=== PATIENT | female | born 1975 | race Caucasian/White ===

== ENCOUNTER → 2023-09-27 | Outpatient (CLI) | payer BC, SELFPAY ==
[2023-09-27 09:36] LABS: Absolute Neutrophil Count 3.9 X10^3/uL (2.0-7.7); Basophil# 0.04 X10^3/uL; Basophil% 0.6 % (0-1); Eosinophil# 0.03 X10^3/uL; Eosinophils% 0.5 % (0-5); Hematocrit 43.9 % (37-47); Lymphocyte % 32.1 % (19-41); Mean Corp Hgb Conc 31.9 g/dL (32-36); Mean Corpuscular Hgb 29.8 pg (27.0-32.0); Mean Corpuscular Volume 93.4 fL (81-99); Mean Platelet Vol. 10.8 fl (6.2-12.0); Monocyte% 7.6 % (0-10); NRBC Flagged by Analyzer 0 % (0-5); Neutrophil # 3.85 X10^3/uL (2.7-7.7); Neutrophil % 58.9 % (47-70); Platelet Count 288 K/mm3 (150-450); RBC Distribution Width CV 12.5 % (11.6-14.6); RBC Distribution Width SD 42.8 fl (35.1-43.9); White Blood Count 6.5 K/mm3 (4.4-11.0)
[2023-09-27 09:50] LABS: International Normalized Ratio 1.5; Prothrombin Time (Protime)PT. 18.1 SECONDS (11.7-14.9)
[2023-09-27 09:52] LABS: Erythrocyte Sedimentation Rate 12 mm/hr (0-30)
[2023-09-27 10:16] LABS: ALB/GLOB Ratio 0.9 RATIO (0.9-2.4); AST(SGOT) 38 U/L (15-37); Alanine Aminotransfer ALT/SGPT 57 U/L (13-56); Albumin, Serum 3.7 g/dL (3.2-5.0); Alkaline Phosphatase 67 U/L (45-117); Anion Gap 3 (5-15); BUN 16 mg/dL (7-18); BUN/Creat Ratio 21.4 RATIO (10-20); CRP 3.81 mg/L (0.0-3.0); Chloride 107 mmol/L (98-107); Creatinine, Serum 0.75 mg/dL (0.55-1.02); EST Glomerular Filtration Rate 88 mL/min (>60); Est Glom Filt Rate - Afr Amer 107 mL/min (>60); Globulin 4.1 g/dL (2.2-4.2); Glucose 87 mg/dL (74-106); LDH 168 U/L (84-246); Potassium 4.1 mmol/L (3.5-5.1); Protein, Total 7.8 g/dL (6.4-8.2); Sodium Level 135 mmol/L (136-145); Thyroid Stim Hormone (TSH) 2.01 uIU/mL (0.358-3.74)
[2023-10-02 12:09] LABS: Anti-Centromere B Ab <0.2 AI (0.0-0.9); Anti-Chromatin <0.2 AI (0.0-0.9); Anti-Jo <0.2 AI (0.0-0.9); Anti-Mitochondrial AB <20.0 Units (0.0-20.0); Anti-Scleroderma-70 AB <0.2 AI (0.0-0.9); Anti-dsDNA Ab 1 IU/mL (0-9); Beef <0.10 kU/L (Class 0); Chocolate <0.10 kU/L (Class 0); Codfish <0.10 kU/L (Class 0); Corn <0.10 kU/L (Class 0); Egg, Whole <0.10 kU/L (Class 0); Milk (Cow) <0.10 kU/L (Class 0); Mussels <0.10 kU/L (Class 0); Peanut <0.10 kU/L (Class 0); Pork <0.10 kU/L (Class 0); RNP Ab <0.2 AI (0.0-0.9); SJOGREN'S Anti-SS-A test 0.2 AI (0.0-0.9); SJOGREN'S Anti-SS-B test < 0.2 AI (0.0-0.9); Salmon <0.10 kU/L (Class 0); Shrimp <0.10 kU/L (Class 0); Smith Ab <0.2 AI (0.0-0.9); Soybean <0.10 kU/L (Class 0); Tuna <0.10 kU/L (Class 0); Wheat <0.10 kU/L (Class 0)
[2023-10-03 06:09] LABS: ACCA 13 units (0-90); AMCA 30 units (0-100); Alpha-1-Globulins 0.2 g/dL (0.0-0.4); Alpha-2-Globulins 0.7 g/dL (0.4-1.0); Angiotensin Convert Enzyme 23 U/L (14-82); Anti-Smooth Muscle ABS 6 Units (0-19); Ceruloplasmin 23.7 mg/dL (19.0-39.0); Copper, Serum or Plasma 122 ug/dL (80-158); Cytoplasmic Ab (C-ANCA) <1:20 titer (Neg:<1:20); Dilute Russell Viper Venom 65.9 sec (0.0-47.0); Endomysial Antibody IgA Negative (Negative); Gamma Globulin 1.5 g/dL (0.4-1.8); HEPATITIS B SURFACE AG Negative (Negative); Hep C Antibodies Non Reactive (Non Reactive); Hepatitis A IgM Antibody Negative (Negative); Hepatitis B Core AB IgM Negative (Negative); IgG, Quant 1505 mg/dL (586-1602); Immunoglobulin A 125 mg/dL (87-352); Immunoglobulin E 27 IU/mL (6-495); Immunoglobulin G, Subclass 1 1116 mg/dL (248-810); Immunoglobulin G, Subclass 2 390 mg/dL (130-555); Immunoglobulin G, Subclass 3 30 mg/dL (15-102); Immunoglobulin G, Subclass 4 24 mg/dL (2-96); Immunoglobulin M 118 mg/dL (26-217); Interpretation Comment: (.); PROEL- TOTAL PROTEIN 7.4 g/dL (6.0-8.5); PTT-LA 33.5 sec (0.0-43.5); Perinuclear Ab (P-ANCA) <1:20 titer (Neg:<1:20); Thrombin Time 17.1 sec (0.0-23.0); dPT Confirm Ratio 0.92 Ratio (0.00-1.34); gASCA 0 units (0-50); t-Transglutaminase IgA <2 U/mL (0-3)
[2023-11-20 14:34] LABS: ALCA 16 units (0-60)
== END | disposition home or self-care (01) ==
LOC: LAB 09:01
PROVIDERS: PCP Nurse Practitioner Adult Health; Referring Provider Internal Medicine Gastroenterology; Visit Provider Internal Medicine Gastroenterology
DX: R19.7 Diarrhea, unspecified (principal)
CPT/HCPCS: 36415; 80053; 80074; 82164; 82390; 82525; 82784; 82785; 82787; 83516; 83615; 84165; 84443; 85025; 85610; 85652; 86003; 86005; 86036; 86140; 86225; 86235; 86255; 86256; 86334; 86671

== ENCOUNTER 2023-10-16 06:03 | Day surgery (SDC) | payer BC, SELFPAY ==
[2023-10-16] VITALS (7 sets, daily range): BP systolic 88–144; BP diastolic 57–122; PULSE 57–74; RESP 16; TEMP 36.5–36.9; O2SAT 98–100; BMI 26.5
--- OUTSIDE RECORDS SUMMARY | 2023-10-16 06:10 | XMS RPT_ITS | CCD ---
Author Name Unknown Address [facility] [place] [address] Organization [facility] Care Team Providers Care Program Evaluation Consultant Name Role Phone TORRES MARTE, SUNDAY Primary Care Physician NISA EVERETT, ANYI Meyer Attending Unavailable FFEMARTIN FELTON-OCCUPATIONAL THERAPY DIRECTOR, [facility] Primary Care Unavai lable TORRES FELTON-RAISA, [facility] Primary Care Leesa PAULA MD, ANYI Meyer Attending Unavailable SEFFENS HAND COPER-OCCUPATIONAL THERAPY DIRECTOR, SUNDAY Attending Unavai lable TORRES JIMENEZN-OCCUPATIONAL THERAPY DIRECTOR, SUNDAY Primary Care Unavai lable TORRES FELTON-OCCUPATIONAL THERAPY DIRECTOR, SUNDAY Primary Care Unavai lable FFEMARTIN FELTON-RAISA, SUNDAY Attending Unavai lable TORRES FELTON-OCCUPATIONAL THERAPY DIRECTOR, SUNDAY Primary Care Leesa PAULA MD, ANYI Meyer Attending Unavailable SEFFENS HAND COPER-OCCUPATIONAL THERAPY DIRECTOR, SUNDAY Primary Care Unavai lable FFEMARTIN HAND COPER-OCCUPATIONAL THERAPY DIRECTOR, SUNDAY Attending Unavai lable FFEMARTIN HAND COPER-OCCUPATIONAL THERAPY DIRECTOR, SUNDAY Primary Care Unavai lable SEFFENS HAND COPER-OCCUPATIONAL THERAPY DIRECTOR, SUNDAY Attending Unavai lable SEFFEMARTIN JIMENEZN-OCCUPATIONAL THERAPY DIRECTOR, SUNDAY Primary Care Unavai lable SEFFENS HAND COPER-OCCUPATIONAL THERAPY DIRECTOR, SUNDAY Attending Cammyvareese labniels Allergies Allergy Classification Reported Allergen(s) Allergy Type Date of Onset Reaction(s) Facility (13 sources) Penicillin; Translations: [penicillin] Drug Allergy [facility] (13 sources) Povidone-Iodine; Translations: [povidone iodine topical] Drug Allergy [facility] Medications Current Medications Medication Drug Class(es) Dates Sig (Normalized) Sig (Original) [id number] 200 actuat albuterol 0.09 mg/actuat metered dose inhaler (1 source) beta2-Adrenergic Agonist Start: 12-15-2022 End: 12-22-2022 take 1-2 puff(s) by inhalation every six hours as needed for wheezing ProAir HFA MDI (90 mcg/inh) inhalation aerosol 1-2 puffs, Inhalation, q6h, PRN PRN as needed for wheezing, # 18 gram(s), 0 Refill(s), Pharmacy: [facility] #[id number], 160, cm, 12/14/22 15:10:00 EDT, Height Start Date: 12/15/22 Stop Date: 12/22/22 Status: Ordered 12 hr guaiFENesin 600 mg extended release oral tablet (2 sources) Start: 08-15-2022 End: 08-22-2022 Mucinex 600 mg oral tablet, extended release Dose : 600 mg = 1 tab(s), Oral, q12h, # 14 tab(s), 0 Refill(s) Start Date: 08/15/22 Stop Date: 08/22/22 Status: Ordered Lopressor 25mg--USE metoprolol tartrate 25 mg oral tablet (11 sources) Start: 05-07-2022 End: 05-02-2023 Lopressor 25mg--USE metoprolol tartrate 25 mg oral tablet Dose : 12.5 mg = 0.5 tab(s), Oral, BID, # 90 tab(s), 3 Refill(s), Pharmacy: [facility] #[id number], 160, cm, 05/07/22 8:35:00 EDT, Height, kg, 05/07/22 8:16:00 EDT, Dosing Weight Start Date: 05/07/22 Stop Date: 05/02/23 Status: Ordered Completed/Discontinued Medications Medication Drug Class(es) Dates Sig (Normalized) Sig (Original) albuterol MDI (90 mcg/inh) CFC free inhalation aerosol (2 sources) Start: 12-18-2022 End: 12-25-2022 take 2 puff(s) by inhalation every six hours as needed for wheezing albuterol MDI (90 mcg/inh) CFC free inhalation aerosol 2 puff(s), Inhalation, q6hr, PRN PRN as needed for wheezing, # 18 gram(s), 0 Refill(s), Pharmacy: [facility] #[id number], 160, cm, 12/14/22 15:10:00 EDT, Height Start Date: 12/18/22 Stop Date: 12/25/22 Status: Ordered Problems Active Problems Problem Classification Problem Date Documented Date Episodic/Chronic Anxiety disorders (5 sources) Anxiety 11-05-2022 Chronic Cardiac dysrhythmias (12 sources) Palpitations 11-04-2021 Episodic Disorders of lipid metabolism (13 sources) Hypercholesterolemia 05-09-2020 Chronic Endometriosis (13 sources) Endometriosis (clinical) 05-09-2020 Chronic Genitourinary symptoms and ill-defined conditions (20 sources) Blood in urine; Translations: [Urinary symptoms ] 02-22-2022 Episodic Mood disorders (5 sources) Recurrent major depressive episodes, moderate 09-11-2022 Chronic Nonspecific chest pain (1 source) Chest pain; Translations: [Other chest pain] Episodic Nutritional deficiencies (5 sources) Vitamin D deficiency 11-05-2022 Chronic Other aftercare (13 sources) Long-term current use of anticoagulant 07-06-2021 Episodic Other gastrointestinal disorders (8 sources) Diarrhea 05-07-2022 Episodic Other lower respiratory disease (7 sources) Cough 08-15-2022 Episodic Other nutritional; endocrine; and metabolic disorders (5 sources) Obesity 11-05-2022 Chronic Phlebitis; thrombophlebitis and thromboembolism (20 sources) Deep venous thrombosis of lower extremity; Translations: [H/O: Deep vein thrombosis] 10-05-2020 Episodic Pulmonary heart disease (20 sources) H/O: pulmonary embolus; Translations: [Pulmonary embolism] 07-06-2021 Episodic Unclassified (8 sources) A+, Immune,( Confirmed ) Onset: 02-22-20 06 02-22-2006 Unclassified (8 sources) L2( Confirmed ) Onset: 02-22-20 06 02-22-2006 Unclassified (8 sources) Girl @ 1310, Bottle feeding.( Confirmed ) Onset: 02-22-2002-22-2006 Unclassified (5 sources) A+, Immune, Onset: 02-22-2002-22-2006 Unclassified (5 sources) Cancer cervix screening status 11-05-2022 Unclassified (5 sources) L2 Onset: 02-22-20 06 02-22-2006 Unclassified (5 sources) Girl @ 1310, Bottle feeding. Onset: 02-22-2002-22-2006 Unclassified (10 sources) Patient encounter status 11-05-2022 Urinary tract infections (10 sources) Urinary tract infectious disease 02-22-2022 Episodic Past or Other Problems Problem Classification Problem Date Documented Da te Episodic/Chronic Other screening for suspected conditions (not mental disorders or infectious disease) (2 sources) Encounter for screening for malignant neoplasm of cervix; Translations: [Encounter for screening for malignant neoplasm of cervix] Onset: 11-05-2022 Episodic Results Test Name Value Interpretation Reference Range Facil ity Encounters Encounter Date Encounter Type Care Provider Facility Start: 08-22-2023 End: 08-23-2023 ambulatory SUNDAY SEFFENS HAND COPER-OCCUPATIONAL THERAPY DIRECTOR Facility:B Start: 01-15-2023 End: 01-16-2023 ambulatory SUNDAY SEFFENS HAND COPER-OCCUPATIONAL THERAPY DIRECTOR Facility:A Start: 12-25-2022 End: 12-26-2022 ambulatory SUNDAY SEFFENS HAND COPER-OCCUPATIONAL THERAPY DIRECTOR Facility:B Start: 12-25-2022 End: 12-25-2022 Patient encounter procedure SUNDAY SEFFENS HAND COPER-OCCUPATIONAL THERAPY DIRECTOR [facility] Start: 12-24-2022 End: 12-25-2022 ambulatory SUNDAY SEFFENS HAND COPER-OCCUPATIONAL THERAPY DIRECTOR Facility:B Start: 12-24-2022 End: 12-24-2022 Patient encounter procedure SUNDAY SEFFENS HAND COPER-OCCUPATIONAL THERAPY DIRECTOR [facility] Start: 12-17-2022 End: 12-18-2022 ambulatory SUNDAY SEFFENS HAND COPER-OCCUPATIONAL THERAPY DIRECTOR Facility:B Start: 12-17-2022 End: 12-17-2022 Patient encounter procedure SUNDAY SEFFENS HAND COPER-OCCUPATIONAL THERAPY DIRECTOR [facility] Start: 12-13-2022 End: 12-14-2022 ambulatory SUNDAY TORRES HAND COPER-OCCUPATIONAL THERAPY DIRECTOR Facility:B Start: 12-13-2022 End: 12-13-2022 Patient encounter procedure ANYI PAULA MD [facility] Start: 11-05-2022 End: 11-10-2022 ambulatory SUNDAY SEFFENS HAND COPER-OCCUPATIONAL THERAPY DIRECTOR Facility:B Start: 11-05-2022 End: 11-10-2022 Encounter for general adult medical examination without abnormal findings SUNDAY SENIKINS HAND COPER-OCCUPATIONAL THERAPY DIRECTOR Facility:B Start: 11-05-2022 End: 11-09-2022 Outreach Lab SUNDAY MACDONALD HAND COPER-OCCUPATIONAL THERAPY DIRECTOR [facility] Start: 10-09-2022 End: 10-10-2022 ambulatory ANYI PAULA MD Facility:A Start: 08-18-2022 End: 08-18-2022 Patient encounter procedure SUNDAY MACDONALD HAND COPER-OCCUPATIONAL THERAPY DIRECTOR [facility] Start: 08-15-2022 End: 08-19-2022 Outreach Lab NANETTE BOWDEN HAND COPER-OCCUPATIONAL THERAPY DIRECTOR [facility] Start: 05-24-2022 End: 05-24-2022 Patient encounter procedure SUNDAY MACDONALD HAND COPER-OCCUPATIONAL THERAPY DIRECTOR [facility] Start: 05-03-2022 End: 05-03-2022 Patient encounter procedure MAYNOR BARRETT MD [facility] Start: 02-22-2022 End: 02-26-2022 Outreach Lab NAVNEET DU DO [facility] Start: 12-05-2021 End: 12-05-2021 Patient encounter procedure SUNDAY MACDONALD HAND COPER-OCCUPATIONAL THERAPY DIRECTOR [facility] Start: 11-06-2021 End: 11-06-2021 Patient encounter procedure MAYNOR BARRETT MD [facility] Start: 10-26-2021 End: 10-26-2021 Patient encounter procedure FRANCIS ROJAS HAND COPER-OCCUPATIONAL THERAPY DIRECTOR [facility] Procedures Date Procedure Procedure Detail Performing Clinician Start: 05-26-2020 Laparoscopic cholecystectomy FRANCIS ROJAS HAND COPER-OCCUPATIONAL THERAPY DIRECTOR Immunizations Immunization Date Immunization Notes Care Provider Fa [facility] 07-08-2019 influenza virus vaccine, unspecified formulation FRANCIS ROJAS HAND COPER-OCCUPATIONAL THERAPY DIRECTOR [facility] 05-19-2014 influenza virus vaccine, unspecified formulation FRANCIS ROJAS HAND COPER-OCCUPATIONAL THERAPY DIRECTOR [facility] Payers Date Payer Category Payer Unknown [id number] 1975 Unknown [id number] 2.16.8 [id number] 1975 Unknown [id number] 2.16.8 [id number] 1976 Unknown [id number] 2.16.8 [id number] 1976 Unknown [id number] 2.16.8 [id number] 1976 Unknown [id number] 2.16.8 [id number] 1976 Unknown [id number] 2.16.8 [id number] 1975 Unknown [id number] 2.16.8 [id number] 1975 Unknown [id number] 2.16.8 [id number] Social History Date Type Detail Facility Start: 05-09-2020 Never smoked t obacco (finding) [facility] Sex Assigned At Female [facility] Clinical Notes 08-15-2022 to 12-24-2022 LaboratoryRadiologyLaboratoryRadiologyLaboratoryRadiologyLaboratoryRadiologyLabo ratoryRadiologyLaboratoryRadiologyLaboratoryRadiologyLaboratoryRadiologyLaborato ryRadiologyLaboratoryRadiologyLaboratory Note Date & Type Note Facility 12-24-2022 Note ORIGINAL EXAMINATION: CTA OF THE CHEST WITH 3D AND MIP RECONSTRUCTIONS 12/24/2022 9:47 am TECHNIQUE: CTA of the chest was performed after the administration of intravenous contrast. Multiplanar reformatted images are provided for review. 3D images are provided for review. Automated exposure control, iterative reconstruction, and/or weight based adjustment of the mA/kV was utilized to reduce the radiation dose to as low as reasonably achievable. COMPARISON: 11/06/2021, earlier HISTORY: ORDERING SYSTEM PROVIDED HISTORY: Reason for Exam: Elevated D-dimer, chest tightness Shortness of breath, elevated D-dimer, history of PE, history of hypertension FINDINGS: Pulmonary Arteries: Adequate main pulmonary artery contrast opacification. Normal caliber main pulmonary artery. No pulmonary embolism to the subsegmental branches given respiratory and contrast streak artifacts. Right middle lobe segmental and subsegmental branches are mildly attenuated from prior embolism when compared to prior 2019 CTA. Mediastinum: No thoracic lymphadenopathy. Normal heart size. No pericardial effusion or leftward bowing of interventricular septum. Normal caliber thoracic aorta with 4 vessel branch arch to include the left vertebral artery. No acute arterial abnormality. Lungs/pleura: Patent tracheobronchial tree. Slight juxtapleural nodular scarring in the right lower lobe posterior segment. No focal consolidation. No pleural effusion or pneumothorax. Upper Abdomen: Limited images of the upper abdomen are unremarkable. Soft Tissues/Bones: No acute or destructive bony abnormality. Mildly degenerative spine. IMPRESSION: No evidence of pulmonary embolism or acute pulmonary abnormality. Interpreted by: Behzad Polanco Preliminary Report By: Behzad Polanco Electronically signed By Behzad Polanco Dictated Date: 12/24/2022 9:49:33 AM Prelim Date: 12/24/2022 9:59:49 AM Sign Date: 12/24/2022 9:59:49 AM Ordering Provider: [facility] 12-24-2022 Note ORIGINAL EXAMINATION: CTA OF THE CHEST WITH 3D AND MIP RECONSTRUCTIONS 12/24/2022 9:47 am TECHNIQUE: CTA of the chest was performed after the administration of intravenous contrast. Multiplanar reformatted images are provided for review. 3D images are provided for review. Automated exposure control, iterative reconstruction, and/or weight based adjustment of the mA/kV was utilized to reduce the radiation dose to as low as reasonably achievable. COMPARISON: 11/06/2021, earlier HISTORY: ORDERING SYSTEM PROVIDED HISTORY: Reason for Exam: Elevated D-dimer, chest tightness Shortness of breath, elevated D-dimer, history of PE, history of hypertension FINDINGS: Pulmonary Arteries: Adequate main pulmonary artery contrast opacification. Normal caliber main pulmonary artery. No pulmonary embolism to the subsegmental branches given respiratory and contrast streak artifacts. Right middle lobe segmental and subsegmental branches are mildly attenuated from prior embolism when compared to prior 2020 CTA. Mediastinum: No thoracic lymphadenopathy. Normal heart size. No pericardial effusion or leftward bowing of interventricular septum. Normal caliber thoracic aorta with 4 vessel branch arch to include the left vertebral artery. No acute arterial abnormality. Lungs/pleura: Patent tracheobronchial tree. Slight juxtapleural nodular scarring in the right lower lobe posterior segment. No focal consolidation. No pleural effusion or pneumothorax. Upper Abdomen: Limited images of the upper abdomen are unremarkable. Soft Tissues/Bones: No acute or destructive bony abnormality. Mildly degenerative spine. IMPRESSION: No evidence of pulmonary embolism or acute pulmonary abnormality. Interpreted by: Behzad Polanco Preliminary Report By: Behzad Polanco Electronically signed By Behzad Polanco Dictated Date: 12/24/2022 9:49:33 AM Prelim Date: 12/24/2022 9:59:49 AM Sign Date: 12/24/2022 9:59:49 AM Ordering Provider: SUNDAY MACDONALD [facility] 11-09-2022 Note Event Code Result HPV Interp See Interp HPVN HPV Interp Text: High Risk HPV Typing: NEGATIVE HPV types 16, 18, 31, 33, 35, 39, 45, 51, 52, 56, 58, 59, 66 and 68 DNA were undetectable or below the pre-set threshold. The steve High-Risk HPV DNA Test is not intended for use as a screening device for Pap normal women under age 30 and is not intended to substitute for regular Pap screening. The steve High-Risk HPV DNA Test is designed to augment existing methods for the detection of cervical disease and should be used in conjunction with clinical information derived from other diagnostic and screening tests, physical examinations and full medical history in accordance with appropriate patient management procedures. NOTE: A negative result does not preclude the presence of HPV infection because results depend on adequate specimen collection, absence of inhibitors and sufficient DNA to be detected. As of: 11/09/22 13:17 [facility] 11-09-2022 Note Event Code Result HPV Interp See Interp HPVN HPV Interp Text: High Risk HPV Typing: NEGATIVE HPV types 16, 18, 31, 33, 35, 39, 45, 51, 52, 56, 58, 59, 66 and 68 DNA were undetectable or below the pre-set threshold. The steve High-Risk HPV DNA Test is not intended for use as a screening device for Pap normal women under age 30 and is not intended to substitute for regular Pap screening. The steve High-Risk HPV DNA Test is designed to augment existing methods for the detection of cervical disease and should be used in conjunction with clinical information derived from other diagnostic and screening tests, physical examinations and full medical history in accordance with appropriate patient management procedures. NOTE: A negative result does not preclude the presence of HPV infection because results depend on adequate specimen collection, absence of inhibitors and sufficient DNA to be detected. As of: 11/09/22 13:17 [facility] 11-09-2022 Note Event Code Result HPV Interp See Interp HPVN HPV Interp Text: High Risk HPV Typing: NEGATIVE HPV types 16, 18, 31, 33, 35, 39, 45, 51, 52, 56, 58, 59, 66 and 68 DNA were undetectable or below the pre-set threshold. The steve High-Risk HPV DNA Test is not intended for use as a screening device for Pap normal women under age 30 and is not intended to substitute for regular Pap screening. The steve High-Risk HPV DNA Test is designed to augment existing methods for the detection of cervical disease and should be used in conjunction with clinical information derived from other diagnostic and screening tests, physical examinations and full medical history in accordance with appropriate patient management procedures. NOTE: A negative result does not preclude the presence of HPV infection because results depend on adequate specimen collection, absence of inhibitors and sufficient DNA to be detected. As of: 11/09/22 13:17 [facility] 11-09-2022 Note Event Code Result HPV Interp See Interp HPVN HPV Interp Text: High Risk HPV Typing: NEGATIVE HPV types 16, 18, 31, 33, 35, 39, 45, 51, 52, 56, 58, 59, 66 and 68 DNA were undetectable or below the pre-set threshold. The steve High-Risk HPV DNA Test is not intended for use as a screening device for Pap normal women under age 30 and is not intended to substitute for regular Pap screening. The steve High-Risk HPV DNA Test is designed to augment existing methods for the detection of cervical disease and should be used in conjunction with clinical information derived from other diagnostic and screening tests, physical examinations and full medical history in accordance with appropriate patient management procedures. NOTE: A negative result does not preclude the presence of HPV infection because results depend on adequate specimen collection, absence of inhibitors and sufficient DNA to be detected. As of: 11/09/22 13:17 [facility] 11-09-2022 Note Event Code Result HPV Interp See Interp HPVN HPV Interp Text: High Risk HPV Typing: NEGATIVE HPV types 16, 18, 31, 33, 35, 39, 45, 51, 52, 56, 58, 59, 66 and 68 DNA were undetectable or below the pre-set threshold. The steve High-Risk HPV DNA Test is not intended for use as a screening device for Pap normal women under age 30 and is not intended to substitute for regular Pap screening. The steve High-Risk HPV DNA Test is designed to augment existing methods for the detection of cervical disease and should be used in conjunction with clinical information derived from other diagnostic and screening tests, physical examinations and full medical history in accordance with appropriate patient management procedures. NOTE: A negative result does not preclude the presence of HPV infection because results depend on adequate specimen collection, absence of inhibitors and sufficient DNA to be detected. As of: 11/09/22 13:17 [facility] 11-09-2022 Note Event Code Result HPV Interp See Interp HPVN HPV Interp Text: High Risk HPV Typing: NEGATIVE HPV types 16, 18, 31, 33, 35, 39, 45, 51, 52, 56, 58, 59, 66 and 68 DNA were undetectable or below the pre-set threshold. The steve High-Risk HPV DNA Test is not intended for use as a screening device for Pap normal women under age 30 and is not intended to substitute for regular Pap screening. The steve High-Risk HPV DNA Test is designed to augment existing methods for the detection of cervical disease and should be used in conjunction with clinical information derived from other diagnostic and screening tests, physical examinations and full medical history in accordance with appropriate patient management procedures. NOTE: A negative result does not preclude the presence of HPV infection because results depend on adequate specimen collection, absence of inhibitors and sufficient DNA to be detected. As of: 11/09/22 13:17 [facility] 11-09-2022 Note Event Code Result HPV Interp See Interp HPVN HPV Interp Text: High Risk HPV Typing: NEGATIVE HPV types 16, 18, 31, 33, 35, 39, 45, 51, 52, 56, 58, 59, 66 and 68 DNA were undetectable or below the pre-set threshold. The steve High-Risk HPV DNA Test is not intended for use as a screening device for Pap normal women under age 30 and is not intended to substitute for regular Pap screening. The steve High-Risk HPV DNA Test is designed to augment existing methods for the detection of cervical disease and should be used in conjunction with clinical information derived from other diagnostic and screening tests, physical examinations and full medical history in accordance with appropriate patient management procedures. NOTE: A negative result does not preclude the presence of HPV infection because results depend on adequate specimen collection, absence of inhibitors and sufficient DNA to be detected. As of: 11/09/22 13:17 EDT [facility] 11-09-2022 Note Event Code Result HPV Interp See Interp HPVN HPV Interp Text: High Risk HPV Typing: NEGATIVE HPV types 16, 18, 31, 33, 35, 39, 45, 51, 52, 56, 58, 59, 66 and 68 DNA were undetectable or below the pre-set threshold. The steve High-Risk HPV DNA Test is not intended for use as a screening device for Pap normal women under age 30 and is not intended to substitute for regular Pap screening. The steve High-Risk HPV DNA Test is designed to augment existing methods for the detection of cervical disease and should be used in conjunction with clinical information derived from other diagnostic and screening tests, physical examinations and full medical history in accordance with appropriate patient management procedures. NOTE: A negative result does not preclude the presence of HPV infection because results depend on adequate specimen collection, absence of inhibitors and sufficient DNA to be detected. As of: 11/09/22 13:17 EDT [facility] 11-07-2022 Note . MICRO - Microbiology PROCEDURE: Affirm Pathogens DNA Direct Probe [*1] SOURCE: Vaginal Fluid BODY SITE: Vaginal Wall COLLECTED DATE/TIME: 11/05/2022 17:12 EDT RECEIVED DATE/TIME: 11/06/2022 15:25 EDT START DATE/TIME: 11/06/2022 15:25 EDT FREE TEXT SOURCE: FINAL REPORTS Final Report [] Verified Date/Time/Personnel: 11/07/2022 11:45 EDT Gardnerella vaginalis DNA Probe Negative Trichomonas vaginalis DNA Probe Negative Angy species DNA Probe Negative Performing Locations *1: This test was performed at: [facility], [address] [place] [address], [id number] , [facility] ([place]) 08-15-2022 SARS-CoV-2 (COVID-19) RNA CHEVY+probe Ql (Nph) Negative *NA* (08/15/22 4:21 PM) AO Auto Urine SS Evaluation + Plan note Future Appointments Appointment Date:10/31/2021 09:45:00 AM Scheduled Provider:MAYNOR BARRETT MD Location:[facility] Appointment Type:[facility] OV Follow Up Appointment Date:11/03/2021 08:30:00 AM Scheduled Provider:SUNDAY MACDONALD Location:[facility] Appointment Type:PC Wellness [facility] Evaluation + Plan note Future Appointments Appointment Date:01/31/2022 11:30:00 AM Scheduled Provider:MAYNOR BARRETT MD Location:[facility] Appointment Type:[facility] OV Follow Up Appointment Date:05/07/2022 08:30:00 AM Scheduled Provider:SUNDAY MACDONALD Location:[facility] Appointment Type:PC OV Follow Up Future Scheduled TestsD-Dimer 01/31/22Thyroid Stimulating Hormone 11/03/21Free T4 11/03/21Complete Blood Count 01/31/22Lipid Profile 11/03/21Vitamin D Level 11/03/21Complete Metabolic Panel 01/31/22US Lower Extrem Venous Duplex Bilateral 10/31/21 [facility] Evaluation + Plan note Future Appointments Appointment Date:01/31/2022 11:30:00 AM Scheduled Provider:MAYNOR BARRETT MD Location:[facility] Appointment Type:[facility] OV Follow Up Appointment Date:05/07/2022 08:30:00 AM Scheduled Provider:SUNDAY MACDONALD Location:[facility] Appointment Type:PC OV Follow Up Future Scheduled TestsD-Dimer 01/31/22Thyroid Stimulating Hormone 11/03/21Free T4 11/03/21Complete Blood Count 01/31/22Lipid Profile 11/03/21Vitamin D Level 11/03/21Complete Metabolic Panel 01/31/22US Lower Extrem Venous Duplex Bilateral 10/31/21XR Chest 2 Views (PA & Lateral) 12/05/21 [facility] Evaluation + Plan note Future Appointments Appointment Date:03/06/2022 01:30:00 PM Scheduled Provider:ROXANNA TRENT Location:[facility] Appointment Type:HEM ONC OV Follow Up Appointment Date:05/07/2022 08:30:00 AM Scheduled Provider:SUNDAY MACDONALD Location:[facility] Appointment Type:PC OV Follow Up Future Scheduled TestsD-Dimer 01/31/22Thyroid Stimulating Hormone 11/03/21Free T4 11/03/21Complete Blood Count 01/31/22Lipid Profile 11/03/21Vitamin D Level 11/03/21Complete Metabolic Panel 01/31/22US Lower Extrem Venous Duplex Bilateral 10/31/21XR Chest 2 Views (PA & Lateral) 12/05/21 [facility] Evaluation + Plan note Future Appointments Appointment Date:05/07/2022 08:30:00 AM Scheduled Provider:SUNDAY MACDONALD Location:[facility] Appointment Type:PC OV Follow Up Appointment Date:09/11/2022 01:00:00 PM Scheduled Provider: Location:[facility] Appointment Type:HEM ONC OV Follow Up Future Scheduled TestsThyroid Stimulating Hormone 11/03/21Free T4 11/03/21Complete Blood Count 09/06/22Lipid Profile 11/03/21Vitamin D Level 11/03/21Complete Metabolic Panel 09/06/22US Lower Extrem Venous Duplex Bilateral 10/31/21XR Chest 2 Views (PA & Lateral) 12/05/21 [facility] Evaluation + Plan note Future Appointments Appointment Date:09/11/2022 01:00:00 PM Scheduled Provider: Location:[facility] Appointment Type:HEM ONC OV Follow Up Appointment Date:11/05/2022 08:30:00 AM Scheduled Provider:SUNDAY MACDONALD Location:[facility] Appointment Type:PC Wellness Annual Future Scheduled TestsRapid Plasma Reagin Test 05/07/22Thyroid Stimulating Hormone 11/03/21Free T4 11/03/21Complete Blood Count 09/06/22Lipid Profile 11/03/21Vitamin D Level 11/03/21Complete Metabolic Panel 09/06/22HIV 1/2 Combo (Ag/Ab) 05/07/22US Lower Extrem Venous Duplex Bilateral 10/31/21XR Chest 2 Views (PA & Lateral) 12/05/21 [facility] Evaluation + Plan note Future Appointments Appointment Date:09/11/2022 01:00:00 PM Scheduled Provider: Location:[facility] Appointment Type:HEM ONC OV Follow Up Appointment Date:11/05/2022 08:30:00 AM Scheduled Provider:SUNDAY MACDONALD Location:[facility] Appointment Type: Wellness Annual Diagnostic Tests PendingRapid Plasma Reagin Test 08/18/22 Future Scheduled TestsComplete Blood Count 09/06/22Complete Metabolic Panel 09/06/22HIV 1/2 Combo (Ag/Ab) 05/07/22US Lower Extrem Venous Duplex Bilateral 10/31/21XR Chest 2 Views (PA & Lateral) 12/05/21 [facility] Evaluation + Plan note Future Appointments Appointment Date:09/11/2022 01:00:00 PM Scheduled Provider: Location:[facility] Appointment Type:HEM ONC OV Follow Up Appointment Date:11/05/2022 08:30:00 AM Scheduled Provider:SUNDAY MACDONALD Location:[facility] Appointment Type:PC Wellness Annual Future Scheduled TestsComplete Blood Count 09/06/22Complete Metabolic Panel 09/06/22HIV 1/2 Combo (Ag/Ab) 05/07/22US Lower Extrem Venous Duplex Bilateral 10/31/21XR Chest 2 Views (PA & Lateral) 12/05/21 [facility] Evaluation + Plan note Future Appointments Appointment Date:12/04/2022 09:00:00 AM Scheduled Provider: Location:[facility] Appointment Type:HEM ONC OV Follow Up Appointment Date:02/04/2023 09:30:00 AM Scheduled Provider:SUNDAY MACDONALD Location:[facility] Appointment Type:PC OV Controlled Medication Future Scheduled TestsProtein S Activity Free Ag 12/04/22Cardiolipin IgG Antibodies 12/04/22Cardiolipin IgM Antibodies 12/04/22Beta 2 Glycoprot 1, IgA 12/04/22Beta 2 Glycoprot IgG and IgM 12/04/22Cardiolipin IgA Antibodies 12/04/22Antithrombin III Assay 12/04/22Protein C Activity 12/04/22Thyroid Stimulating Hormone 11/05/22APTT Panel 12/04/22APC Factor V Resistance 12/04/22Complete Blood Count 09/06/22Complete Blood Count 12/04/22Circulating Anticoagulants - Panel 12/04/22Lipid Profile 11/05/22Prothrombin Gene Mutation 12/04/22Vitamin D Level 11/05/22Complete Metabolic Panel 09/06/22Complete Metabolic Panel 12/04/22HIV 1/2 Combo (Ag/Ab) 05/07/22MA Mammo Screening Bilateral w/ Celso 11/05/22XR Chest 2 Views (PA & Lateral) 12/05/21 [facility] Evaluation + Plan note Future Appointments Appointment Date:12/25/2022 01:30:00 PM Scheduled Provider: Location:[facility] Appointment Type:HEM ONC OV Follow Up Appointment Date:02/04/2023 09:30:00 AM Scheduled Provider:SUNDAY MACDONALD Location:[facility] Appointment Type:PC OV Controlled Medication Diagnostic Tests PendingAPC Factor V Resistance 12/13/22Antithrombin III Assay 12/13/22Cardiolipin IgA Antibodies 12/13/22Cardiolipin IgG Antibodies 12/13/22Cardiolipin IgM Antibodies 12/13/22Beta 2 Glycoprot 1, IgA 12/13/22Beta 2 Glycoprot IgG and IgM 12/13/22Circulating Anticoagulants - Panel 12/13/22Protein C Activity 12/13/22Protein S Activity Free Ag 12/13/22Prothrombin Gene Mutation 12/13/22 Future Scheduled TestsThyroid Stimulating Hormone 11/05/22Complete Blood Count 09/06/22Lipid Profile 11/05/22Vitamin D Level 11/05/22Complete Metabolic Panel 09/06/22HIV 1/2 Combo (Ag/Ab) 05/07/22MA Mammo Screening Bilateral w/ Celso 11/05/22 [facility] Evaluation + Plan note Future Appointments Appointment Date:12/25/2022 01:30:00 PM Scheduled Provider: Location:[facility] Appointment Type:HEM ONC OV Follow Up Appointment Date:02/04/2023 09:30:00 AM Scheduled Provider:SUNDAY MACDONALD Location:[facility] Appointment Type:PC OV Controlled Medication Future Scheduled TestsHIV 1/2 Combo (Ag/Ab) 05/07/22MA Mammo Screening Bilateral w/ Celso 11/05/22 [facility] Evaluation + Plan note Future Appointments Appointment Date:12/25/2022 07:45:00 AM Scheduled Provider: Location:[facility] Appointment Type:HL Plain Stress Test Appointment Date:12/25/2022 08:00:00 AM Scheduled Provider: Location:[facility] Appointment Type:CV Procedure - AOH Echo Appointment Date:01/15/2023 10:30:00 AM Scheduled Provider: Location:[facility] Appointment Type:HEM ONC OV Follow Up Appointment Date:02/04/2023 09:30:00 AM Scheduled Provider:SUNDAY MACDONALD Location:[facility] Appointment Type:PC OV Controlled Medication Future Scheduled TestsHIV 1/2 Combo (Ag/Ab) 05/07/22MA Mammo Screening Bilateral w/ Celso 11/05/22 [facility] Evaluation + Plan note Future Appointments Appointment Date:01/15/2023 10:30:00 AM Scheduled Provider: Location:[facility] Appointment Type:HEM ONC OV Follow Up Appointment Date:02/04/2023 09:30:00 AM Scheduled Provider:SUNDAY MACDONALD Location:[facility] Appointment Type:PC OV Controlled Medication Future Scheduled TestsHIV 1/2 Combo (Ag/Ab) 05/07/22MA Mammo Screening Bilateral w/ Celso 11/05/22 [facility] Hospital course Narrative No data available for this section [facility] Discharge instructions No data available for this section [facility] Progress note No data available for this section [facility] Summary Purpose Family History No Family History Records FoundNo Family History Records Found Advance Directives No Advanced Directives Records FoundNo Advanced Directives Records Found Additional Source Comments INFORMATION SOURCE (unrecogn ized section and content) DATE CREATED AUTHOR AUTHOR'S ORGANIZ ATION 08/23/2023 [facility] ([place]) Care Team (unrecognized sect ion and content) Personnel Name: SUNDAY MACDONALD Address: [address] [place] [address]- Care Team Personnel Name: SUNDAY MACDONALD Position: P4 Advanced Oil Deliverer Member Role: Primary Care Physician Address: Address: [address] [place] [address]- Care Team Related Persons Name: GARY DIAZ Address: [address], [place] [phone] [place] Care Team Personnel Name: SUNDAY MACDONALD Position: P4 Advanced Oil Deliverer Member Role: Primary Care Physician Address: Address: [address] [place] [address]- Care Team Related Persons Name: GARY DIAZ Address: Home [address] [phone] [place] Care Team Personnel Name: SUNDAY MACDONALD Position: P4 Advanced Oil Deliverer Member Role: Primary Care Physician Address: Address: [address] [place] [address]- Care Team Related Persons Name: AGRY DIAZ Address: Home [address], [place] [phone] [place] Care Team Personnel Name: SUNDAY MACDONALD APRN-RAISA Position: P4 Advanced Oil Deliverer Member Role: Primary Care Physician Address: Address: [address] [place] [address]- Care Team Related Persons Name: GARY DIAZ Address: Home [address], [place] [phone] [place] Care Team Personnel Name: SUNDAY MACDONALD APRN-RAISA Position: P4 Advanced Oil Deliverer Member Role: Primary Care Physician Address: Address: [address] [place] [phone]- Care Team Related Persons Name: GARY DIAZ Address: Home [address], [place] [phone] [place] Care Team (unrecognized sect ion and content) Care Team Personnel Name: SUNDAY MACDONALD APRN-RAISA Position: P4 Advanced Practice Nurse Med Service: Active Provider Member Role: Primary Care Physician Address: Address: [address] [place] [phone]- Care Team Related Persons Name: GARY DIAZ Address: Home [address], [place] [phone] [place] Care Team Personnel Name: SUNDAY MACDONALD APRN-RAISA Position: P4 Advanced Practice Nurse Med Service: Active Provider Member Role: Primary Care Physician Address: Address: [address] [place] [address]- Care Team Related Persons Name: GARY DIAZ Address: Home [address], [place] [phone] [place] Care Team Personnel Name: SUNDAY MACDONALD APRN-OCCUPATIONAL THERAPY DIRECTOR Position: P4 Advanced Practice Nurse Med Service: Active Provider Member Role: Primary Care Physician Address: Address: [address] [place] [address]- Care Team Related Persons Name: GARY DIAZ Address: Home [address], [place] [phone] [place] Care Team Personnel Name: SUNDAY MACDONALD APRN-OCCUPATIONAL THERAPY DIRECTOR Position: P4 Advanced Practice Nurse Member Role: Primary Care Physician Address: Address: [address] [place] [address]- [place] Care Team Related Persons Name: GARY DIAZ Address: Home [address] [place] [phone] Care Team Personnel Name: SUNDAY MACDONALD JOSE FRANCISCO-OCCUPATIONAL THERAPY DIRECTOR Position: P4 Advanced Practice Nurse Member Role: Primary Care Physician Address: Address: [address] [place] [address] Care Team Related Persons Name: GARY DIAZ Address: [address] [phone] FOR RECORDS PERTAINING TO PATIENTS WHO ARE OR HAVE BEEN ENROLLED IN A CHEMICAL DEPENDENCY/SUBSTANCEABUSE PROGRAM, SOME INFORMATION MAY BE OMITTED. This clinical summary was aggregated from multiple sources. Caution should be exercised in using it in the provision of clinical care. This summary normalizes information from multiple sources, and as a consequence, information in this document may materially change the coding, format and clinical context of patient data. In addition, data may be omitted in some cases. CLINICAL DECISIONS SHOULD BE BASED ON THE PRIMARY CLINICAL RECORDS. [facility] [employer] provides no warranty or guarantee of the accuracy or completeness of information in this document.
[2023-10-16 06:38] LABS: Internal QC Validated? YES +Cl - CLEAR BKGD; Pregnancy, Urine Negative Negative
[2023-10-16] MEDS: Lactated Ringers 1,000 ML 15 ML IV (06:38)
--- NOTE | 2023-10-16 06:58 | PCM.HP.BLA ---
History and Physical Date of Admission: 10/16/23 48 F who presents to the office today for PCP OV 3.13.23 for management of anxiety/depression, Vit D deficiency, HLD, PE. Notes change in bowel pattern to alternating constipation and loose stools; FH colon cancer in her father. [facility] OV 09.27.23 Cholecystectomy 2019; after surgery diarrhea and intermittent incontinence for about a year. Over the past year will have bloating, constipation and diarrhea. Usually has BM daily. Pt incorporates daily fiber and about 60 oz fluids in diet. Due for colonoscopy. ROS Const Constitutional: No fatigue, fever(s), frequent falls, headache(s), weakness or weight change ENT ENT: No headache(s) or difficulty swallowing Cardio Cardiology: No leg pain with exertion Gastro GI: Positive for bloating, change in bowel habits and constipation; No abdominal pain, diarrhea, heartburn, difficulty swallowing, excessive flatus, Vomiting blood/hematemesis, Blood in stool, nausea/dyspepsia or vomiting Musc Musculoskeletal: No joint pain, back pain, joint swelling, muscle cramps, muscle weakness, numbness, stiffness, tingling, Arthritis, sciatica, restless legs, leg pain at night or leg pain with exertion Skin Skin: No dry skin, lesions, itchy eyes or rash Neuro Neurology: No behavioral changes, unsteady gait/balance, weakness, frequent falls, headache(s), numbness, tingling, restless legs, tremor(s), Increased tone in limbs, paralysis or seizures Psych Psychiatric: Positive for anxiety, No behavioral changes, Positive for depression, No paranoia, No Compulsive Behavior, No hyperactivity, No inattentiveness, No obsessions/compulsions, No Temper Tantrums and No suicidal ideation Endo Endocrine: No fatigue or weight change Aller/Imm Allergy/Immunologic: No itchy eyes Robb/Lymp Hematologic/Lymphatic: Positive for easy bruising; No easy bleeding Supplemental Info 48-year-old with a long history of bowel issues. She does not have a diagnosis of inflammatory bowel disease. She is presenting like she has a lot of issues with a possible osmotic diarrhea. She goes back and forth between constipation and diarrhea. She has not had any biochemical workup for her symptoms. She does not have a history of anemia. She has not noted any cardiovascular family has a history of problems with her bowels. She has had surgery in particular a cholecystectomy for which she had diarrhea for a year after it was done. The differential diagnosis for her symptoms does include IBS mixed between constipation and diarrhea, exocrine pancreatic insufficiency, inflammatory bowel disease, H. pylori associated gastritis, medication induced constipation. She will undergo biochemical testing, stool testing and upper and lower endoscopy. I have examined the patient and the H&P has been reviewed. There are no clinical changes since date of exam.
--- NOTE | 2023-10-16 07:00 | COLBX_PTH ---
PATHOLOGY RESULTS PATIENT: EVIN DIAZ LOC: EN U#:[id number] AGE/SX: 48/F ROOM: RE10/16/[address]: Dr. Antonio Velez DO : 1975 BED: DIS: 10/16/2023 SPEC #: [id number] RECD: 10/16/23 11:07 STATUS: FANG CAMILO #: [id number] SKINNY: 10/16/23 07:[address]: Antonio Velez DEPT: SURGICAL PATHOLOGY RECD BY: Katie Lopes ENTERED: 10/16/23 11:08 SP TYPE: COLON BX OTHR DR: JOCELYN CHOWDARY Tissues: Duodenum, NOS Gastric mucous membrane Ileum, NOS Procedures: Surgery Specimen Level IV HEADER OPERATION: Colonoscopy, EGD PRE-OP DIAGNOSIS: Abdominal pain, screening TISSUE SUBMITTED: A - Duodenum biopsy, B - Gastric body biopsy, C - Ileocecal valve polyp MICROSCOPIC DIAGNOSIS A. Duodenum, biopsy: Fragments of duodenal mucosa with focal blunting of villi and nonspecific chronic inflammation. B. Gastric body, biopsy: Mild gastritis. See microscopic description and comment. C. Ileocecal valve polyp, biopsy: Fragments of tubular adenoma. SJ:jasbir 10/17/2023 COMMENT B. The results of immunohistochemistry for Helicobacter pylori will be reported separately ([id number]). MICROSCOPIC DESCRIPTION Slides are reviewed. B. The specimen shows fragments of gastric mucosa with chronic inflammatory cell infiltrates in the lamina propria consisting of lymphocytes and plasma cells, consistent with mild chronic gastritis. GROSS DESCRIPTION A - Received in fixative is one container labeled with the patient's name and designated duodenum biopsy. The specimen consists of two irregular fragments of light thomas soft tissue that in aggregate measure 0.6 x 0.3 x 0.1 cm. The specimen is totally submitted in one cassette. B - Received in fixative is one container labeled with the patient's name and designated gastric body biopsy. The specimen consists of two irregular fragments of light thomas soft tissue that in aggregate measure 0.5 x 0.3 x 0.1 cm. The specimen is totally submitted in one cassette. C - Received in fixative is one container labeled with the patient's name and designated ileocecal valve polyp. The specimen consists of multiple minute fragments of thomas soft tissue that in aggregate measure 0.3 x 0.1 x 0.1 cm. The specimen is totally submitted in one cassette. / GAVIN:jasbir 10/16/2023 TC:1 CPT: 57396 x3
--- NOTE | 2023-10-16 07:00 | IMM_PTH ---
PATHOLOGY RESULTS PATIENT: EVIN DIAZ LOC: EN U#:[id number] AGE/SX: 48/F ROOM: RE10/16/[address]: Dr. Antonio Velez DO : 1975 BED: DIS: 10/16/2023 SPEC #: [id number] RECD: 10/16/23 11:51 STATUS: FANG REQ #: [id number] SKINNY: 10/16/23 07:[address]: Antonio Velez DEPT: IMMUNOHISTOCHEMISTRY RECD BY: Vee Yin ENTERED: 10/16/23 11:52 SP TYPE: IMMUNO OTHR DR: JOCELYN CHOWDARY Tissues: Stomach, NOS Procedures: H Pylori (initial) PHYSICIAN & INSTITUTION [place] [id number] SPECIMEN INFORMATION: Tissue Source: B - Gastric body Clinical Info: Abdominal pain, screening Specimen Number: [id number] CPT code: 68959 METHODOLOGY: Deparaffinized sections of prefer/formalin-fixed tissue or PAP/DQ stained slides are incubated with monoclonal/polyclonal antibodies/oligonucleotide probes. Localization is made via biotin free immunoperoxidase method. Appropriate controls are performed and reacted as expected. Results on target cell population are indicated in the following table: RESULTS: ANTIBODY / CLONE RESULT Block B H Pylori (polyclonal) negative These tests were developed and their performance characteristics determined by [facility]. They may not have been cleared or approved by the U.S. Food and Drug Administration. The FDA has determined that such clearance or approval is not necessary. The above immunohistochemical/dualISH markers are ordered and reviewed by the Pathologist. INTERPRETATION: B. Gastric body, biopsy: Negative for Helicobacter pylori organisms. AM:jasbir 10/16/2023
--- NOTE | 2023-10-16 07:38 | OP.EGD_ITS ---
Patient Name: Teddy Roy Procedure Date: 10/16/2023 6:58 AM Date of : 1975 Age: 48 Procedure: Upper GI endoscopy Indications: Epigastric abdominal pain, Functional Dyspepsia Providers: Antonio Velez DO Referring MD: Areli Garibay Medicines: Monitored Anesthesia Care Patient Profile: This is a 48 year old female. Refer to note in patient chart for documentation of history and physical. Patient has symptoms of chronic epigastric abdominal pain. Complications: No immediate complications. Procedure: Pre-Anesthesia Assessment: - Prior to the procedure, a History and Physical was performed, and patient medications and allergies were reviewed. The patient is competent. The risks and benefits of the procedure and the sedation options and risks were discussed with the patient. All questions were answered and informed consent was obtained. Patient identification and proposed procedure were verified by the physician in the pre-procedure area. Mental Status Examination: alert and oriented. Airway Examination: normal oropharyngeal airway and neck mobility. Respiratory Examination: clear to auscultation. CV Examination: normal. Prophylactic Antibiotics: The patient does not require prophylactic antibiotics. Prior Anticoagulants: The patient has taken no anticoagulant or antiplatelet agents. ASA Grade Assessment: II - A patient with mild systemic disease. After reviewing the risks and benefits, the patient was deemed in satisfactory condition to undergo the procedure. The anesthesia plan was to use monitored anesthesia care (MAC). Immediately prior to administration of medications, the patient was re-assessed for adequacy to receive sedatives. The heart rate, respiratory rate, oxygen saturations, blood pressure, adequacy of pulmonary ventilation, and response to care were monitored throughout the procedure. The physical status of the patient was re-assessed after the procedure. After obtaining informed consent, the endoscope was passed under direct vision. Throughout the procedure, the patient's blood pressure, pulse, and oxygen saturations were monitored continuously. The Colonoscope was introduced through the mouth, and advanced to the second part of duodenum. The upper GI endoscopy was accomplished without difficulty. The patient tolerated the procedure well. Scope In: 7:13:13 AM Scope Out: 7:17:08 AM Total Procedure Duration Time 0 hours 3 minutes 55 seconds Findings: The examined esophagus was normal. Patchy mildly erythematous mucosa without bleeding was found in the gastric body. Biopsies were taken with a cold forceps for histology. Verification of patient identification for the specimen was done. Estimated blood loss was minimal. Biopsies were taken with a cold forceps for Helicobacter pylori testing. Verification of patient identification for the specimen was done. Estimated blood loss was minimal. Patchy mildly erythematous mucosa without active bleeding and with no stigmata of bleeding was found in the duodenal bulb and in the first portion of the duodenum. Biopsies were taken with a cold forceps for histology. Verification of patient identification for the specimen was done. Estimated blood loss was minimal. Impression: - Normal esophagus. - Erythematous mucosa in the gastric body. Biopsied. - Erythematous duodenopathy. Biopsied. Recommendation: - Discharge patient to home. - Resume previous diet. - Continue present medications. - Await pathology results. Procedure Code(s): --- Professional --- 46821, Esophagogastroduodenoscopy, flexible, transoral; with biopsy, single or multiple CPT copyright 2021 [employer]. All rights reserved. The codes documented in this report are preliminary and upon auto body repairer fiberglass review may be revised to meet current compliance requirements. Antonio Velez DO 10/16/2023 7:38:08 AM This report has been signed electronically. Number of Addenda: 0 Note Initiated On: 10/16/2023 6:58 AM
--- NOTE | 2023-10-16 07:38 | OP.CCLET_ITS ---
10/16/2023 Areli Garibay Re : Upper GI endoscopy procedure for Teddy Roy Dear David This procedure was performed on Monday, October 16, 2023. My impressions and recommendations are as follows: Impressions : - Normal esophagus. - Erythematous mucosa in the gastric body. Biopsied. - Erythematous duodenopathy. Biopsied. Recommendations : - Discharge patient to home. - Resume previous diet. - Continue present medications. - Await pathology results. My findings are described in the full procedure note, which is enclosed. If I can be of further assistance, please feel free to contact me at . Sincerely, Antonio Velez, 10/16/2023 7:38:08 AM This report has been signed electronically.
--- NOTE | 2023-10-16 07:41 | OP.COLON_ITS ---
Patient Name: Teddy Roy Procedure Date: 10/16/2023 7:17 AM Date of : 1975 Age: 48 Procedure: Colonoscopy Indications: Screening for colorectal malignant neoplasm Providers: Antonio Velez DO Referring MD: Areli Garibay Medicines: Monitored Anesthesia Care Patient Profile: This is a 48 year old female. Refer to note in patient chart for documentation of history and physical. Patient has symptoms of chronic epigastric abdominal pain. Last Colonoscopy: more than 10 years ago. Complications: No immediate complications. Procedure: Pre-Anesthesia Assessment: - Prior to the procedure, a History and Physical was performed, and patient medications and allergies were reviewed. The patient is competent. The risks and benefits of the procedure and the sedation options and risks were discussed with the patient. All questions were answered and informed consent was obtained. Patient identification and proposed procedure were verified by the physician in the pre-procedure area. Mental Status Examination: alert and oriented. Airway Examination: normal oropharyngeal airway and neck mobility. Respiratory Examination: clear to auscultation. CV Examination: normal. Prophylactic Antibiotics: The patient does not require prophylactic antibiotics. Prior Anticoagulants: The patient has taken no anticoagulant or antiplatelet agents. ASA Grade Assessment: II - A patient with mild systemic disease. After reviewing the risks and benefits, the patient was deemed in satisfactory condition to undergo the procedure. The anesthesia plan was to use monitored anesthesia care (MAC). Immediately prior to administration of medications, the patient was re-assessed for adequacy to receive sedatives. The heart rate, respiratory rate, oxygen saturations, blood pressure, adequacy of pulmonary ventilation, and response to care were monitored throughout the procedure. The physical status of the patient was re-assessed after the procedure. After I obtained informed consent, the scope was passed under direct vision. Throughout the procedure, the patient's blood pressure, pulse, and oxygen saturations were monitored continuously. The Colonoscope was introduced through the anus and advanced to the cecum, identified by appendiceal orifice and ileocecal valve. The colonoscopy was performed without difficulty. The patient tolerated the procedure well. The quality of the bowel preparation was adequate. The terminal ileum, ileocecal valve, appendiceal orifice, and rectum were photographed. Scope In: 7:19:06 AM Scope Withdrawal Time 0 hours 11 minutes 1 second Scope Out: 7:33:05 AM Total Procedure Duration Time 0 hours 13 minutes 59 seconds Findings: The perianal and digital rectal examinations were normal. An 8 mm polyp was found in the ileocecal valve. The polyp was sessile. The polyp was removed with a saline injection-lift technique using a hot snare. Resection and retrieval were complete. Verification of patient identification for the specimen was done. Estimated blood loss was minimal. The terminal ileum appeared normal. Impression: - One 8 mm polyp at the ileocecal valve, removed using injection-lift and a hot snare. Resected and retrieved. - The examined portion of the ileum was normal. Recommendation: - Discharge patient to home. - Resume previous diet. - Continue present medications. - Await pathology results. - Repeat colonoscopy in 5 years for surveillance. Procedure Code(s): --- Professional --- 08996, Colonoscopy, flexible; with removal of tumor(s), polyp(s), or other lesion(s) by snare technique 64724, Colonoscopy, flexible; with directed submucosal injection(s), any substance CPT copyright 2021 [employer]. All rights reserved. The codes documented in this report are preliminary and upon straddle carrier operator review may be revised to meet current compliance requirements. Antonio Velez DO 10/16/2023 7:40:57 AM This report has been signed electronically. Number of Addenda: 0 Note Initiated On: 10/16/2023 7:17 AM
--- NOTE | 2023-10-16 07:41 | OP.CCLET_ITS ---
10/16/2023 Areli Garibay Re : Colonoscopy procedure for Teddy Prietor David This procedure was performed on Monday, October 16, 2023. My impressions and recommendations are as follows: Impressions : - One 8 mm polyp at the ileocecal valve, removed using injection-lift and a hot snare. Resected and retrieved. - The examined portion of the ileum was normal. Recommendations : - Discharge patient to home. - Resume previous diet. - Continue present medications. - Await pathology results. - Repeat colonoscopy in 5 years for surveillance. My findings are described in the full procedure note, which is enclosed. If I can be of further assistance, please feel free to contact me at . Sincerely, Antonio Velez, 10/16/2023 7:40:57 AM This report has been signed electronically.
== END 2023-10-16 08:27 | disposition home or self-care (01) ==
LOC: EN 06:07 → AC 06:09
PROVIDERS: Anesthesiology; PCP Nurse Practitioner Adult Health; Referring Provider Nurse Practitioner Adult Health; Visit Provider Internal Medicine Gastroenterology
PROC: 0DJD8ZZ Inspection of Lower Intestinal Tract, Via Natural or Artificial Opening Endoscopic (ICD-10-PCS; CPT 45378; principal; 2023-10-16 06:55)
DX: Z12.11 Encounter for screening for malignant neoplasm of colon (principal); R10.13 Epigastric pain; K29.70 Gastritis, unspecified, without bleeding; D12.0 Benign neoplasm of cecum; K31.89 Other diseases of stomach and duodenum; F41.9 Anxiety disorder, unspecified; F32.A Depression, unspecified; K76.0 Fatty (change of) liver, not elsewhere classified; Z79.01 Long term (current) use of anticoagulants; Z79.899 Other long term (current) drug therapy; Z86.718 Personal history of other venous thrombosis and embolism
CPT/HCPCS: 45385; 45381; 43239; 81025; 88305; 88342; J7120; J2405

== ENCOUNTER → 2023-11-11 | Outpatient (CLI) | payer BC, SELFPAY ==
--- NOTE | 2023-11-11 11:31 | NM_ITS ---
CLINICAL: 48 year old female with history of alternating constipation and diarrhea. SEMI-SOLID PHASE 99m Tc SULFUR COLLOID GASTRIC EMPTYING STUDY COMPARISON: None available FINDINGS: The patient was administered 1.1 mCi of 99m Tc sulfur colloid mixed with oatmeal and consumed per os. Image acquisitions in the anterior-posterior projections were obtained for 60 minutes. There is prompt visualization of the stomach. There is no gastroesophageal reflux identified. The T ? raw data emptying was calculated to be 18.28 minutes, (Normal: 12-56 minutes). NM/Gastric Emptying Study IMPRESSION: 1. NORMAL 99m Tc sulfur colloid semi-solid phase (oatmeal) gastric emptying imaging examination. A. There is normal and preserved semi-solid phase gastric emptying compared to normal controls. (Sosa et al, J Nucl Med Tech 38: 186, 2010). Electronically Signed: Emory Medina DO at 8:42 EDT ,
== END | disposition home or self-care (01) ==
PROVIDERS: PCP Nurse Practitioner Adult Health; Referring Provider Internal Medicine Gastroenterology; Visit Provider Internal Medicine Gastroenterology
DX: R19.7 Diarrhea, unspecified (principal)
CPT/HCPCS: 78264; A9541

== ENCOUNTER → 2023-11-18 | Outpatient (CLI) | payer BC, SELFPAY ==
--- NOTE | 2023-11-18 07:22 | US_ITS ---
STUDY: ABDOMINAL ULTRASOUND - RIGHT UPPER QUADRANT; ELASTOGRAPHY REASON FOR VISIT: Female, 48 years old. Elevated liver enzymes. TECHNIQUE: Ultrasound evaluation of the right upper quadrant was performed with real-time and static gale-scale imaging. Point quantification shear wave elastography was performed ([employer]). TECHNICAL QUALITY: Adequate. COMPARISON: None. FINDINGS: Liver: The liver measures 14.3 cm. There is increased echogenicity consistent with fatty infiltration. The bile ducts are within normal limits. There is hepatic color flow. The direction of portal flow is hepatopetal. There is no demonstrated mass lesion. Median liver stiffness measured 9.9 kPa. Gallbladder: The patient is status post cholecystectomy. Common Bile Duct (C.B.D.): The common bile duct measures 3.1 mm. Pancreas: There is normal echogenicity of the visualized pancreas. There is no demonstrated pancreatic mass or cyst. Right Kidney: Normal size of the right kidney. The right kidney measures 10.3 cm x 4.8 cm x 5.1 cm. Normal renal cortex. The right cortex measures 1.1 cm. There is no demonstrated renal mass or cyst. There is no right hydronephrosis. US/ABD Complete w/ Elastography IMPRESSION: 1. Liver stiffness measures 9.9 kPa compatible with F2-F3 (Mild to moderate liver fibrosis) Metavir score. Electronically Signed: Zia Hernandez MD at 10:24 EDT ,
== END | disposition home or self-care (01) ==
LOC: US 07:20
PROVIDERS: PCP Nurse Practitioner Adult Health; Referring Provider Internal Medicine Gastroenterology; Visit Provider Internal Medicine Gastroenterology
DX: R74.01 Elevation of levels of liver transaminase levels (principal)
CPT/HCPCS: 76700; 76981

== ENCOUNTER → 2024-04-21 | Outpatient (CLI) | payer BC, SELFPAY ==
[2024-04-21 12:59] LABS: Erythrocyte Sedimentation Rate 18 mm/hr (0-30)
[2024-04-21 13:09] LABS: Absolute Lymphocyte Count 2.41 X10^3/uL (0.83-4.51); Absolute Neutrophil Count 5.8 X10^3/uL (2.0-7.7); Basophil# 0.02 X10^3/uL; Basophil% 0.2 % (0-1); Eosinophil# 0.03 X10^3/uL; Eosinophils% 0.3 % (0-5); Hematocrit 43.6 % (37-47); Hemoglobin 14.4 g/dL (12.0-15.0); Lymphocyte # 2.41 X10^3/ul (0.83-4.51); Lymphocyte % 26.7 % (19-41); Mean Corpuscular Hgb 30.1 pg (27.0-32.0); Mean Corpuscular Volume 91.2 fL (81-99); Monocyte# 0.71 X10^3/uL; Monocyte% 7.9 % (0-10); NRBC Flagged by Analyzer 0 % (0-5); Neutrophil # 5.82 X10^3/uL (2.7-7.7); Neutrophil % 64.5 % (47-70); Platelet Count 267 K/mm3 (150-450); RBC Distribution Width CV 12.4 % (11.6-14.6); RBC Distribution Width SD 40.9 fl (35.1-43.9); RET-HE 35.1 pg (30-35); Red Blood Count 4.78 M/mm3 (4.2-5.4); Reticulocyte Count 1.42 % (0.5-1.5)
[2024-04-21 13:13] LABS: International Normalized Ratio 1.4
[2024-04-21 13:36] LABS: Vitamin B12 446 pg/mL (211-911)
[2024-04-21 17:25] LABS: ALB/GLOB Ratio 0.9 RATIO (0.9-2.4); AST(SGOT) 45 U/L (15-37); Alanine Aminotransfer ALT/SGPT 60 U/L (13-56); Albumin, Serum 3.7 g/dL (3.2-5.0); Alkaline Phosphatase 84 U/L (45-117); Anion Gap 8 (5-15); BUN 20 mg/dL (7-18); BUN/Creat Ratio 27.7 RATIO (10-20); CRP < 2.90 mg/L (0.0-3.0); Calcium,Total 9.9 mg/dL (8.5-10.1); Chloride 106 mmol/L (98-107); Creatinine, Serum 0.72 mg/dL (0.55-1.02); EST Glomerular Filtration Rate 92 mL/min (>60); Est Glom Filt Rate - Afr Amer 111 mL/min (>60); Ferritin 43 ng/mL (8-252); Globulin 4.2 g/dL (2.2-4.2); Glucose 90 mg/dL (74-106); Iron 96 ug/dL (50-170); Iron Binding Capacity,Total 274 ug/dL (250-450); LDH 190 U/L (84-246); Magnesium 2.3 mg/dL (1.6-2.6); Phosphorus 3.1 mg/dL (2.5-4.9); Potassium 4.1 mmol/L (3.5-5.1); Protein, Total 7.9 g/dL (6.4-8.2); Sodium Level 138 mmol/L (136-145); T4 Free Direct 0.95 ng/dL (0.76-1.46)
[2024-04-22 15:09] LABS: Albumin 3.7 g/dL (2.9-4.4); Alpha-1-Globulins 0.2 g/dL (0.0-0.4); Alpha-2-Globulins 0.8 g/dL (0.4-1.0); Free Kappa Light Chains 18.6 mg/L (3.3-19.4); Free Lambda Light Chains 17.8 mg/L (5.7-26.3); Gamma Globulin 1.5 g/dL (0.4-1.8); Immunoglobulin A 123 mg/dL (87-352); Immunoglobulin G 1524 mg/dL (586-1602); Immunoglobulin M 118 mg/dL (26-217); PROEL- TOTAL PROTEIN 7.3 g/dL (6.0-8.5)
== END | disposition home or self-care (01) ==
PROVIDERS: PCP Nurse Practitioner Adult Health; Referring Provider Internal Medicine Medical Oncology; Visit Provider Internal Medicine Medical Oncology
DX: D89.2 Hypergammaglobulinemia, unspecified (principal)
CPT/HCPCS: 36415; 80053; 82607; 82728; 82746; 82784; 83540; 83550; 83615; 83735; 83883; 84100; 84165; 84439; 84443; 85025; 85045; 85379; 85610; 85652; 85730; 86140; 86334

== ENCOUNTER → 2024-07-28 | Outpatient (CLI) | payer BC, SELFPAY ==
--- NOTE | 2024-07-28 09:21 | US_ITS ---
STUDY: ABDOMINAL ULTRASOUND - RIGHT UPPER QUADRANT; ELASTOGRAPHY REASON FOR VISIT: Female, 49 years old. Fatty infiltration of the liver. TECHNIQUE: Ultrasound evaluation of the right upper quadrant was performed with real-time and static gale-scale imaging. Point quantification shear wave elastography was performed ([employer]). TECHNICAL QUALITY: Adequate. COMPARISON: Comparison is made with prior study November 18, 2023. FINDINGS: Liver: The liver measures 15.6 cm. There is increased echogenicity consistent with fatty infiltration. The bile ducts are within normal limits. There is hepatic color flow. The direction of portal flow is hepatopetal. There is a 1 cm x 0.9 cm x 0.9 cm slightly echogenic nodule in the right lobe of the liver in the region of the dome. This is suggestive of a small hemangioma. Median liver stiffness measured 8.3 kPa. Gallbladder: The patient is status post cholecystectomy. Common Bile Duct (C.B.D.): The common bile duct measures 6.4 mm. Pancreas: There is normal echogenicity of the visualized pancreas. There is no demonstrated pancreatic mass or cyst. Right Kidney: Normal size of the right kidney. The right kidney measures 10 cm x 4.5 cm x 4.2 cm. Normal renal cortex. The right cortex measures 1 cm. There is no demonstrated renal mass or cyst. There is no right hydronephrosis. US/ABD Limited w/ Elastography IMPRESSION: 1. Liver stiffness measures 8.3 kPa compatible with F2-F3 (Mild to moderate liver fibrosis) Metavir score. 2. Findings suggesting a 1 cm x 0.9 cm hemangioma in the right lobe liver adjacent to the dome. Electronically Signed: Zia Hernandez MD at 14:07 EST ,
== END | disposition home or self-care (01) ==
LOC: US 09:20
PROVIDERS: PCP Nurse Practitioner Adult Health; Referring Provider Internal Medicine Gastroenterology; Visit Provider Internal Medicine Gastroenterology
DX: K76.0 Fatty (change of) liver, not elsewhere classified (principal)
CPT/HCPCS: 76705; 76981

== ENCOUNTER → 2024-09-09 | Outpatient (CLI) | payer BC, SELFPAY ==
--- NOTE | 2024-09-09 07:23 | MRI_ITS ---
MRI Abdomen w/ and w/out contrast 09/09/2024 7:46 AM COMPARISON: None CLINICAL HISTORY: liver lesion TECHNIQUE: Multiplanar T1 and T2 weighted, diffusion and dynamic post-gadolinium images were obtained through the abdomen before and after administration of 15 cc of IV clariscan. FINDINGS: Liver: There is a 9 mm T1 hypointense/T2 hyperintense lesion in the hepatic dome with progressive nodular enhancement consistent with hemangioma. Slightly nodular liver contour. Gallbladder: Unremarkable Pancreas: Unremarkable Spleen: Unremarkable Adrenal Glands: Unremarkable Kidneys: Unremarkable GI Tract: Unremarkable Lymphadenopathy: Absent Ascites: Absent Bones: No suspicious lesions MRI/MRI Abd WITH and W/O Contrast IMPRESSION: 9 mm hepatic hemangioma in the dome of the liver. Slightly nodular liver contour could represent early cirrhosis. Electronically Signed: Boris Kaminski MD at 20:36 EST ,
== END | disposition home or self-care (01) ==
PROVIDERS: PCP Nurse Practitioner Adult Health; Referring Provider Internal Medicine Gastroenterology; Visit Provider Internal Medicine Gastroenterology
DX: K76.9 Liver disease, unspecified (principal)
CPT/HCPCS: 74183; A9575; A4216

== ENCOUNTER → 2024-09-29 | Outpatient (CLI) | payer BC, SELFPAY ==
[2024-09-29] VITALS (13 sets, daily range): BP systolic 109–147; BP diastolic 72–91; PULSE 60–71; RESP 9–18; TEMP 36.7; O2SAT 96–100; BMI 28.3
--- NOTE | 2024-09-29 09:07 | CT_ITS ---
PROCEDURE: CT-guided liver biopsy. REASON FOR EXAM: Possible cirrhosis. No IV contrast was administered. TECHNIQUE: The procedure as well as the benefits and possible complications including infection and bleeding were explained to the patient. Informed consent was obtained. The overlying skin was prepped and draped in usual sterile fashion. Conscious sedation was performed. The patient received 2 mg of Versed and 75 mcg of fentanyl. Conscious sedation was started at 1009 hours and terminate at 1036 hours. The patient was independently monitored by the department nurse. The overlying skin was prepped and draped in the usual sterile fashion. Following local anesthetic application, 4 core biopsies of the right lobe of the liver was performed utilizing a 18 gauge core biopsy needle system. The procedure was performed with Isabel Barone CNP COMPARISON: None. FINDINGS: The patient tolerated the procedure well. Successful CT-guided liver biopsy. CT/Biopsy/Inj or Needle Placement IMPRESSION: Successful CT-guided liver biopsy as described. The patient tolerated the proc edure well. One or more dose reduction techniques were used (e.g., Automated exposure contr ol, adjustment of the mA and/or kV according to patient size, use of iterative reconstruction technique). Reading Location: [facility]
[2024-09-29 09:16] LABS: Absolute Lymphocyte Count 1.87 X10^3/uL (0.83-4.51); Absolute Neutrophil Count 6.2 X10^3/uL (2.0-7.7); Basophil# 0.03 X10^3/uL; Basophil% 0.3 % (0-1); Eosinophil# 0.06 X10^3/uL; Eosinophils% 0.7 % (0-5); Hematocrit 42.8 % (37-47); Hemoglobin 14.1 g/dL (12.0-15.0); Lymphocyte # 1.87 X10^3/ul (0.83-4.51); Lymphocyte % 21.3 % (19-41); Mean Corp Hgb Conc 32.9 g/dL (32-36); Mean Corpuscular Hgb 30.1 pg (27.0-32.0); Mean Corpuscular Volume 91.3 fL (81-99); Mean Platelet Vol. 10.3 fl (6.2-12.0); Monocyte# 0.58 X10^3/uL; Monocyte% 6.6 % (0-10); NRBC Flagged by Analyzer 0 % (0-5); Neutrophil # 6.21 X10^3/uL (2.7-7.7); Neutrophil % 70.8 % (47-70); Platelet Count 278 K/mm3 (150-450); RBC Distribution Width CV 12.5 % (11.6-14.6); RBC Distribution Width SD 41.6 fl (35.1-43.9); Red Blood Count 4.69 M/mm3 (4.2-5.4); White Blood Count 8.8 K/mm3 (4.4-11.0)
[2024-09-29 09:17] LABS: Prothrombin Time (Protime)PT. 13.5 SECONDS (11.7-14.9)
[2024-09-29 09:18] LABS: Partial Thromboplast Time 24.9 Seconds (24.1-36.2)
[2024-09-29] MEDS: 0.9% Saline Lock 10 ML Syringe IV ×2 (09:34→10:34)
[2024-09-29] MEDS: Midazolam 2 MG/2 ML Syringe IV ×2 (10:09→10:27)
[2024-09-29] MEDS: fentaNYL 100 MCG/2 ML Ampul IV ×2 (10:11→10:34)
[2024-09-29] MEDS: Lidocaine 2% (20 ml mdv) 20 ML Vial INFILT (10:30)
--- NOTE | 2024-09-29 10:30 | LIVB_PTH ---
PATIENT: EVIN DIAZ LOC: CT U#:[id number] AGE/SX: 49/F ROOM: RE09/29/[address]: Dr. Antonio Velez DO : 1975 BED: DIS: 09/29/2024 SPEC #: [id number] RECD: 09/29/24 10:46 STATUS: FANG LOGANElijah #: [id number] SKINNY: 09/29/24 10:[address]: Antonio Velez DEPT: SURGICAL PATHOLOGY RECD BY: Sridevi Irving ENTERED: 09/29/24 12:05 SP TYPE: LIVER BX OT DR: JOCELYN CHOWDARY Tissues: Liver, NOS Procedures: PAS with Diastase (control) Trichrome (control) Special Stain Group I PAS Stain (control) Surgery Specimen Level V Retic (control) Iron Stain (control) HEADER OPERATION: CT guided liver biopsy PRE-OP DIAGNOSIS: Cirrhosis TISSUE SUBMITTED: 18 gauge x 4 cores MICROSCOPIC DIAGNOSIS Liver, CT guided core biopsy: Fragments of benign liver parenchymal tissue. See microscopic description and comment. 09/30/2024 COMMENT Correlation with clinical, laboratory findings and appropriate follow up are necessary. MICROSCOPIC DESCRIPTION Slides are reviewed. This specimen shows fragments of liver parenchymal tissue with preserved lobular architecture. Hepatocytes are unremarkable. Lobular inflammation is not seen. Portal areas are also unremarkable. Significant portal inflammation is not seen. No interface inflammation is noted. Iron stain shows absent iron. Reticulin stain highlights the normal preserved lobular architecture. PAS stain with and without diastase do not reveal any abnormal accumulation of protein. Trichrome stain does not show an increased portal or periportal fibrosis. All stains are performed with appropriate matched controls. GROSS DESCRIPTION Received in fixative is one container labeled with the patient's name and designated Liver biopsy. The specimen consists of multiple elongated fragments of thomas soft tissue that in aggregate measure 1.5 x 0.3 x 0.1 cm. The specimen is totally submitted in one cassette. 09/29/2024 TC:5 [facility]:[id number]
== END | disposition home or self-care (01) ==
PROVIDERS: Radiology Diagnostic Radiology; PCP Nurse Practitioner Adult Health; Referring Provider Internal Medicine Gastroenterology; Visit Provider Internal Medicine Gastroenterology
DX: Z01.818 Encounter for other preprocedural examination (principal); K76.9 Liver disease, unspecified
CPT/HCPCS: 47000; 36415; 77012; 85025; 85610; 85730; 88307; 88312; 99156; A4216

== ENCOUNTER → 2025-03-10 | Outpatient (CLI) | payer BC, SELFPAY ==
[2025-03-10 15:55] LABS: Hematocrit 43.8 % (37-47); Hemoglobin 14.6 g/dL (12.0-15.0); Immature Granulocytes Count 0.020 X10^3/uL (0.0-0.0); Mean Corp Hgb Conc 33.3 g/dL (32-36); Mean Corpuscular Volume 88.7 fL (81-99); Mean Platelet Vol. 10.6 fl (6.2-12.0); NRBC Flagged by Analyzer 0 % (0-5); Platelet Count 275 K/mm3 (150-450); RBC Distribution Width CV 12.3 % (11.6-14.6); RBC Distribution Width SD 39.8 fl (35.1-43.9); Red Blood Count 4.94 M/mm3 (4.2-5.4); White Blood Count 8.1 K/mm3 (4.4-11.0)
[2025-03-10 16:36] LABS: D-Dimer Quantitative (DVT/PE) 0.79 FEU/ug/m (0.27-0.49)
[2025-03-10 17:00] LABS: AST(SGOT) 22 U/L (<=31); Alanine Aminotransfer ALT/SGPT 17 U/L (<=34); Albumin, Serum 4.5 g/dL (3.5-5.0); Alkaline Phosphatase 70 U/L (35-104); Anion Gap 12 (5-15); BUN 18 mg/dL (4-19); BUN/Creat Ratio 21.5 RATIO (10-20); Calcium,Total 9.9 mg/dL (7.6-11.0); Carbon Dioxide 22.7 mmol/L (21.0-32.0); Chloride 102 mmol/L (98-108); Globulin 3.5 g/dL (2.2-4.2); Glucose 83 mg/dL (70-99); LDH 186 U/L (84-246); Potassium 4.0 mmol/L (3.3-5.1)
[2025-03-12 15:08] LABS: Immunoglobulin A 130 mg/dL (87-352); Immunoglobulin G 1703 mg/dL (586-1602); Immunoglobulin M 118 mg/dL (26-217)
[2025-03-15 10:08] LABS: Albumin 3.9 g/dL (2.9-4.4); Gamma Globulin 1.6 g/dL (0.4-1.8); IgG, Quant 1619 mg/dL (586-1602); Immunoglobulin A 123 mg/dL (87-352); Immunoglobulin G, Subclass 1 925 mg/dL (248-810); Immunoglobulin G, Subclass 2 360 mg/dL (130-555); Immunoglobulin G, Subclass 3 20 mg/dL (15-102); Immunoglobulin G, Subclass 4 23 mg/dL (2-96); Immunoglobulin M 110 mg/dL (26-217); PROEL- TOTAL PROTEIN 7.6 g/dL (6.0-8.5)
== END | disposition home or self-care (01) ==
LOC: LAB 15:05
PROVIDERS: PCP Nurse Practitioner Adult Health; Referring Provider Internal Medicine Medical Oncology; Visit Provider Internal Medicine Medical Oncology
DX: D89.2 Hypergammaglobulinemia, unspecified (principal); K76.0 Fatty (change of) liver, not elsewhere classified; R79.89 Other specified abnormal findings of blood chemistry
CPT/HCPCS: 36415; 80053; 82784; 82787; 83615; 83883; 84165; 85025; 85379; 86334

== ENCOUNTER → 2025-04-16 | Outpatient (CLI) | payer BC, SELFPAY ==
--- NOTE | 2025-04-16 08:53 | US_ITS ---
PROCEDURE: ABD LIMITED W/ ELASTOGRAPHY REASON FOR EXAM: ELEVATED LIVER ENZYMES, FATTY LIVER COMPARISON: Prior study dated November 18, 2023. TECHNIQUE: Right upper quadrant abdominal ultrasound. [employer] ElastQ Imaging shear wave elastography for non-invasive assessment of liver tissue stiffness. [employer] EPI[employer] Elite. FINDINGS: LIVER: Size: Enlarged (hepatomegaly) Length: 18 cm Echotexture: Diffusely echogenic suggesting fatty infiltration Contour: Normal Lesions: There is a 1.1 cm 1 cm 1.2 cm echogenic nodule in the right lobe of the liver suggestive of a small hemangioma. Elastography: EQI Med: 11.3 kPa EQI Med Prashant: 1.93 m/s IQR/Med: 21 %* GALLBLADDER: Surgically absent. COMMON BILE DUCT: Dilated measuring up to 5 mm . PANCREAS: Normal Visualized portions of the right kidney are unremarkable. No right upper quadrant ascites. US/ABD Limited w/ Elastography IMPRESSION: Moderate hepatic fibrosis. Mild hepatomegaly. Diffuse fatty infiltration of the liver. Reference Values: SRU <1.37 m/s (5.7kPa): No to mild fibrosis 1.37 m/s - 2.2 m/s: Moderate to severe fibrosis >2.2 m/s (15kPa): Significant fibrosis / cirrhosis METAVIR Score F2 or higher: 1.34 m/s (5.7kPa) F3 or higher: 1.55 m/s (7.3kPa) F4: 1.80 m/s (10kPa) * If the IQR/Med is >30%, the variance in the measurements is a large and the a ccuracy of the measurement may be in question. Reading Location: [id number]
== END | disposition home or self-care (01) ==
LOC: US 08:49
PROVIDERS: PCP Nurse Practitioner Adult Health; Referring Provider Internal Medicine Gastroenterology; Visit Provider Internal Medicine Gastroenterology
DX: K76.0 Fatty (change of) liver, not elsewhere classified (principal)
CPT/HCPCS: 76705; 76981